=== PATIENT | male | born 1985 | race Caucasian/White ===

== ENCOUNTER → 2018-08-23 10:41 | Outpatient (CLI) | payer MEDICAID, SELFPAY ==
[2018-08-08 14:07] VITALS: BMI 34.2
--- NOTE | 2018-08-23 14:19 | PFTCOMP_ITS ---
COMPLETE PULMONARY FUNCTION TEST INTERPRETATION Brief HPI: Patient is a 33 year old male, currently under the care of Dr. Boyd, who presents to [facility] for complete pulmonary function tests secondary to diagnosis of cough. Respiratory therapist reports good effort and reproducible results. Interpretation: Forced expiration spirometry shows no large airways obstructive ventilatory defect with an FEV1 of 100% predicted. There is no significant bronchodilator response by strict ATS criteria. Spirograms are of good quality and plateau normally. The respiratory flow volume loop shows a normal pattern. Lung volumes by body plethysmography show a normal total lung capacity at 6.88 L, 91% predicted. All other lung volumes are within normal limits. Diffusion capacity by carbon monoxide is normal at 86% predicted. The airway resistance is normal. No previous pulmonary function tests were available for review. Impression: These pulmonary function tests are within normal limits, but the patient did use inhaled steroids on the day of testing.
--- OUTSIDE RECORDS SUMMARY | 2018-10-09 05:39 | XMS RPT_ITS ---
:1985 Author Organization [place] Support Name Relationship Address Phone EARNESTINE BOYD Unavailable [address] + [place] [address] RIP Unavailable [address] + [place] [address] CLAUDEEARNESTINE ALBARRAN Unavailable [address] + [place] [address] RIP Unavailable [address] + [place] [address] + [facility] [place] [address] DEB EARNESTINE Unavailable [address] +/ [place] [address] + [place] [address] DEB EARNESTINE Unavailable [address] +/ [place] [address] + [place] [address] DEB EARNESTINE Unavailable [address] +/ [place] [address] NOT GIVEN Unavailable SECURITY Unavailable RIMAVIS TANVIR Unavailable BROTHER + PARRIS BOYDINA Unavailable [address] Unavailable [place], [place] [phone] NOT GIVEN Unavailable SECURITY Unavailable RIMEL, TANVIR Unavailable BROTHER + DEB EARNESTINE Unavailable [address] Unavailable [place], [place] [phone] NOT GIVEN Unavailable Unavailable Unavailable RIMEL, TANVIR Unavailable BROTHER + PARRIS BOYDINA Unavailable [address] Unavailable [place], [place] [phone] Care Team Providers Name Role Phone DOMINIK, DR APARNA Treadwell Admitting Unavailable DOMINIK, DR APARNA Treadwell Attending Unavailable LUU, CATHERINE J Referring Unavailable DOMINIK, DR APARNA Treadwell Primary Care Unavailable LUU, CATHERINE J Consulting Unavailable PROVIDER, UNKNOWN Consulting Unavailable NEMUNAITIS, AYO Admitting Unavailable NEMUNAITIS, AYO Attending Unavailable NEMUNAITIS, AYO Primary Care Unavailable LUU, CATHERINE J Consulting Unavailable LUU, CATHERINE J Referring Unavailable PROVIDER, UNKNOWN Consulting Unavailable LUU, CATHERINE J Admitting Unavailable LUU, CATHERINE J Attending Unavailable LUU, CATHERINE J Primary Care Unavailable LUU, CATHERINE J Consulting Unavailable PROVIDER, UNKNOWN Consulting Unavailable Corby Delgado Attending Unavailable Alexey Boyd D.O. Referring Unavailable Lalita Botello Attending Unavailable Alexey Boyd D.O. Attending Unavailable JUAN A, CATHERINE Referring Unavailable Alexey Boyd D.O. Attending Unavailable JUAN A, CATHERINE Referring Unavailable Alexey Boyd D.O. Attending Unavailable Alexey Boyd D.O. Referring Unavailable LUU, CATHERINE Primary Care Unavailable PROBLEMS PROBLEMS DATE TYPE CONDITION / CODE ATTENDING STATUS SOURCE 08/31/2018 Unknown R05 - Cough / Corby Delgado Active [place] R05(ICD-10) [facility] Repository PROCEDURES PROCEDURES No Procedure Records FoundRESULTS RESULTS PULMONARY FUNCTION Observed: 08/24/2018 Status: F Source: [place] REPORT COMP 6:02 AM [facility] REPOSITORY [facility] Pulmonary Services/Neurology [address] [place] [address] MR#: [id number] Acct: [id number] Name: SHREYA BOYD Tyrone Rep #: [id number] : 1985 33 From: Corby Delgado MD Referring Dr: Alexey Boyd D.O. Status: REG CLI Ordering Dr: Date: Location: PSN Sex: M C COMPLETE PULMONARY FUNCTION TEST INTERPRETATION Brief HPI: Patient is a 33 year old male, currently under the care of Dr. Boyd, who presents to [facility] for complete pulmonary function tests secondary to diagnosis of cough. Respiratory therapist reports good effort and reproducible results. Interpretation: Forced expiration spirometry shows no large airways obstructive ventilatory defect with an FEV1 of 100% predicted. There is no significant bronchodilator response by strict ATS criteria. Spirograms are of good quality and plateau normally. The respiratory flow volume loop shows a normal pattern. Lung volumes by body plethysmography show a normal total lung capacity at 6.88 L, 91% predicted. All other lung volumes are within normal limits. Diffusion capacity by carbon monoxide is normal at 86% predicted. The airway resistance is normal. No previous pulmonary function tests were available for review. Impression: These pulmonary function tests are within normal limits, but the patient did use inhaled steroids on the day of testing. 08/24/18 0602 <Electronically signed by Corby Delgado MD> Date Corby Delgado MD CC: ESTRELLA LUU; Corby Delgado MD; Alexey Boyd D.O. Date Dictated: 08/23/18 1418 Date Transcribed: 08/23/181417 Treating Plant Supervisor: JACKI Signed PULMONARY VISIT REPORT Observed: 08/08/2018 Status: F Source: [place] 2:58 PM [facility] Pulmonary Medicine of [address] [place] [address] OFFICE VISIT Date of Service: 08/08/18 MR#: [id number] Acct: [id number] Name: SHREYA BOYD Rep #: [id number] : 1985 Provider: Alexey Boyd D.O. Age/Sex: 33/M Location: [facility] Status: Signed Assessment AND Plan 1. Chronic cough R05 Plan I do suspect that the patient's chronic cough complaints is likely the consequence of both postnasal drip precipitated by seasonal allergic rhinitis, along with possible cough variant asthma. Therefore, I am going to obtain baseline pulmonary function testing on the patient. In the interim, he will be provided with samples of Arnuity. The patient will also be provided with a prescription for an albuterol metered-dose inhaler to be utilized every 6 hours as needed. He has also been advised to avoid swallowing his smokeless tobacco in the future. The patient will have short interval follow-up with our nurse practitioner to assess his symptom response to therapy. Orders Orders: 2. Chewing tobacco nicotine dependence F17.220 Plan The patient was counseled regarding the deleterious effects of smokeless tobacco use. 3. Allergic rhinitis J30.9 Plan The patient will be started on Flonase to be utilized 2 sprays in each nostril daily. Plan Detail Other Medications New: albuterol sulfate HFA 90 mcg/actuation adm2 puffs Inhalation Q6H PRN 1 device 3RF shor inister with spacer tness of breath or cough fluticasone furoate 100 mcg/actuation (Arnuit1 inh Inhalation DAILY 1 device 3RF y Ellipta) Follow Up 6 Weeks ([facility]) HPI HPI Comments Details: The patient is a 33-year-old male that presents to the clinic today in referral for evaluation of a chronic cough. The patient is currently being followed by Catherine Luu of [facility]. 8 pages of outside medical records were personally reviewed at today's office visit. The patient reports the presence of a cough, which has been present since December 2017. He is not able to identify an initial inciting factor or precipitating event. He has been treated with azithromycin, antihistamines and H2 elif. Despite this, the patient's symptoms persist. The patient has never been diagnosed with asthma previously. His cough is essentially nonproductive in nature. Patient is currently employed working in the private security sector, but states that several months ago he was employed working at [employer] and was around chicken droppings all the time. He denies any significant chest tightness or wheezing. He additionally denies the presence of significant exertional dyspnea. The patient does currently utilize smokeless tobacco and admits that he both splits and swallows the product. When he does swallow the tobacco product, his cough worsens. He does not currently utilize any inhalers at his baseline. He does report secondhand smoke exposure. He has lived in [place] his entire life. He does not currently keep any pets in his home environment. His weight has been stable. Patient does report a history of seasonal allergic rhinitis and is currently dealing with postnasal drip symptoms. He denies fevers, chills or night sweats. Intake Vital Signs08/08/18 Height 6 ft 1 in Intake Visit Reasons: Cough Accompanied by: Self Allergies paroxetine HCl [From Paxil] Adverse Reaction (Verified 07/12/18 06:53) Other sertraline HCl [From Zoloft] Adverse Reaction (Verified 07/12/18 06:53) Other Medications omeprazole 20 mg capsule,delayed release 20 mg PO DAILY 07/06/18 [History Confirmed 08/08/18] albuterol sulfate HFA 90 mcg/actuation aerosol inhaler 2 puff INHALATION Q6H PRN #1 device 08/08/18 [Rx Confirmed 08/08/18] fluticasone 50 mcg/actuation nasal spray,suspension 2 spray INTRANASAL QDAY #1 device 08/08/18 [Rx Confirmed 08/08/18] fluticasone furoate 100 mcg/actuation blister powder for inhalation 1 inh INHALATION DAILY #1 device 08/08/18 [Rx Confirmed 08/08/18] PFSH Medical History Headache (Chronic) Chewing tobacco nicotine dependence (Chronic) Persistent cough (Chronic) Fatigue (Chronic) Vitamin D deficiency (Chronic) Seizures (Chronic) Family History Father Seizures Mother Seizures Social History Smoking Status: Never smoker second hand exposure: Yes Review of Systems Const CONSTITUTIONAL: Positive headache(s) (from coughing ); negative anorexia, body ache, chills, daytime sleepiness, fever(s), night sweats, oral thrush, stops breathing during sleep, weight loss, sleeping in chair, fatigue, weight loss, weight gain, frequent colds, seasonal allergies, other or orthopnea EETM Ear Nose Throat Mouth: Positive hearing normal and headache(s) (from coughing ); negative hard of hearing, hoarseness, dry mouth in morning, change in vision, itchy eyes, eye pain, swallowing Difficulty, ear pain, nose bleed, mouth pain, nasal congestion, nasal discharge, post nasal drip, sinus pain, sinus pressure, sore throat or other Cardio Cardiovascular: Negative chest pain, chest pain at rest, chest pain with activity, irregular heart rhythm, edema, shortness of breath when lying down, palpitations, murmur or other Resp Respiratory: Positive as per HPI, shortness of breath shortness of breath: Positive with activity, cough cough: Positive productive (unaware of color) and chest tightness; negative pain with cough, wheezing, chest congestion, pain on inspiration, inhalers, increase use of rescue inhalers, snoring, apnea or other Gastro Gastrointestional: Negative bloody stools, change in appetite, difficulty swallowing, reflux, hematemesis, melena stool, loose stool, constipation or other Genitourinary: Negative blood in urine, nocturia, pain with urination or other Musc Musculoskeletal: Negative body pain, back pain, neck pain or other Skin/Breast Skin/Breast: Negative dry skin, itching, rash, unusual bruising, breast lump or other Neuro Neurological: Negative restless legs, confusion, weakness or other Psych Psychocological: Negative abnormal sleep pattern, anxiety, thoughts of hurting self/others, hopelessness or other Lymph Lymphatic: Negative easy bleeding, easy bruising, swollen lymph nodes or other Exam Const Constitutional: Positive conversant, cooperative, in no acute respiratory distress, well developed, well nourished and good hygiene Head Head: Positive normocephalic and atraumatic; negative cyanosis of lips/distal nose Eyes Eye: Positive clear conjunctiva; negative nystagmus or scleral abnormality Ears Ear: Positive hearing normal and external ears normal; negative hard of hearing Nose Nose: Positive external nose normal; negative epistaxis Mouth Mouth: Positive oral mucosae normal and posterior oropharynx is adequate; negative no lesions or post nasal drip Mallampati Score: II: Mallampati Score Neck Neck: Positive normal visual inspection and trachea midline; negative lymphadenopathy Chest Wall Chest: Positive symmetric chest movement Normal AP diameter. Resp lung sounds: Positive clear to auscultation and good air exchange; negative wheezes, rhonchi or rales Cardio Cardiac: Positive regular rate, regular rhythm, S1 normal and S2 normal; negative rub, gallop or murmur GI GI: Positive normal bowel sounds Soft without distention Genitourinary: Positive deferred [facility] Musculoskeletal: Positive steady gait Skin Pulmonary Skin Exam: Positive intact; negative lesion, ulcers, dermal atrophy or rash Pulses Pulse: Yes Pedal pulses present: Extremities Extremities: No clubbing, No cyanosis, No edema Neuro Neurologic: Yes conversant, Yes no focal neuro deficits, Yes cooperative Lymph Lymphatic: No lymphadenopathy Psych Appearance: Positive grossly normal Mental Status: Positive mental status grossly normal Mood: Positive congruent mood Affect: Positive normal affect Coding Level of Care Code Off vis,new,level 4 Diagnoses Chronic cough R05 Chewing tobacco nicotine dependence F17.220 Allergic rhinitis J30.9 08/08/18 3423 <Electronically signed by Alexey Boyd DO> Date Alexey Adams Signature: Date (if applicable) CC: ESTRELLA LUU CHEST 2 VIEWS Observed: 04/25/2018 Status: F Source: [place] 5:[address] [address] Patient: SHREYA BOYD Phone#: : 1985 Age: 32 Gender: M Pt. Type: Out Account: [id number] Location: [facility] Ordering: CATHERINE LUU Exam Date: 04/25/2018/16:59 Family Phys: Charge Code: 419261 Physician: Davidson Order #: [id number] DLP Dose#: PROCEDURE: X-RAY CHEST 2 VIEWS COMPARISON: [facility], XR, CHEST 2 VIEWS, 12/10/2017, 0:37. INDICATIONS: Persistent Cough FINDINGS: LUNGS: Normal. No significant pulmonary parenchymal abnormalities. VASCULATURE: Normal. Unremarkable pulmonary vasculature. CARDIAC: Normal. No cardiac silhouette abnormality or cardiomegaly. MEDIASTINUM: Normal. No visible mass or adenopathy. PLEURA: Normal. No effusion or pleural thickening. BONES: Normal. No fracture or visible bony lesion. OTHER: Negative. CONCLUSION: No acute disease. No significant change has occurred. Dictated by: Nicolette Armando MD on 04/25/2018 at 17:15 Approved by: Nicolette Armando MD on 04/25/2018 at 17:15 CHEST 2 VIEWS Observed: 12/10/2017 Status: F Source: [place] 12:[address] [address] Patient: SHREYA BOYD Phone#: : 1985 Age: 32 Gender: M Pt. Type: ER Account: [id number] Location: 052 Ordering: AYO AVILA Exam Date: 12/10/2017/0:37 Family Phys: CATHERINE LUU Charge Code: [id number] Physician: Davidson Order #: [id number] DLP Dose#: PROCEDURE: X-RAY CHEST 2 VIEWS COMPARISON: [facility], XR, CHEST PA/LAT, 08/27/2013, 21:24. INDICATIONS: Cough FINDINGS: LUNGS: Normal. No significant pulmonary parenchymal abnormalities. VASCULATURE: Normal. Unremarkable pulmonary vasculature. CARDIAC: Normal. No cardiac silhouette abnormality or cardiomegaly. MEDIASTINUM: Normal. No visible mass or adenopathy. PLEURA: Normal. No effusion or pleural thickening. BONES: Normal. No fracture or visible bony lesion. OTHER: Negative. CONCLUSION: No acute disease. No significant change has occurred. Dictated by: Jonna Torres MD on 12/10/2017 at 15:48 Approved by: Jonna Torres MD on 12/10/2017 at 15:48 EMERGENCY REPORT Observed: 10/26/2017 Status: F Source: [facility] 2:12 AM [facility] EMERGENCY ROOM REPORT NAME NUMBER SEX AGE ADMIT DISC TYPE MED.RECORD# SHREYA BOYD SR [id number] M 32 07/17/2017 07/17/2017 RaviRSnehal [id number] ROOM:ER DATE OF :1985 PHYSICIAN NO.:[id number] PHYSICIAN NAME:ESTRELLA WILLSON PHYSICIAN:Tamara Flores M.D. CHIEF COMPLAINT: Cyst to left side of scrotum. HISTORY OF PRESENT ILLNESS: Patient is a 32-year-old male who has a history of recurrent cysts. Patient states that about every year or 2 years he ends up with a cyst on some part of his body. This one started 2 days ago. He noticed a small cyst on his scrotum which has gotten a bit more painful over the last couple of days. Historically patient has allowed a previous cyst to enlarge and get bigger, requiring incision and drainage in the ED. Patient was about to take some nail clippers to pop this one tonight, but acquired patient to come to the ED to get evaluated. Patient denies fevers, chills, nausea, vomiting, diarrhea. Patient also denies any drainage from this cyst. PAST MEDICAL HISTORY: Denies. PAST SURGICAL HISTORY: History of ankle surgery. ALLERGIES: (1) Paxil. (2) Zoloft. (3) Bleach. For Paxil and Zoloft reaction is anaphylaxis and severity is moderate. SOCIAL HISTORY: The patient is a current every day user of chewing tobacco. Patient also occasionally uses alcohol. Denies illicit drug use. Denies prescription drug use. Patient lives at home with his family. Patient denies concerns for domestic violence or thoughts of self-harm. His immunizations are up to date to include tetanus shot. REVIEW OF SYSTEMS: A full complete review of systems was done on ED report, please see the paper chart for additional details. PHYSICAL EXAMINATION: Vital signs: Temperature 99, pulse 102, respiratory rate 20, BP 147/88, oxygen saturation 97%. General: Patient is awake, alert, oriented x3. He is seated in physical exam room 2. Patient is in no acute distress. HEENT: Atraumatic, normocephalic. Extraocular muscles intact. Mucous membranes moist. Neck: Supple. Range of motion normal. Lungs: Clear to auscultation bilaterally. Cardiovascular: Regular rate and rhythm. Neurologic: Cranial nerves 2 through 12 grossly intact. Strength is grossly 5/5 in all extremities and sensation is normal. Skin: Warm, moist, and normal with exception of last his scrotal area in which there is a 3 mm cyst superficially containing white material. There is no surrounding induration, there is no surrounding erythema, area is mildly tender. There is no evidence of drainage. There is no evidence of trauma to this area. DIAGNOSTIC DATA: Studies and laboratories: None. MEDICAL DECISION MAKING: Patient is a 32-year-old male with a left-sided scrotal cyst. I scrubbed the area, as well as 3 cm in each direction from the cyst with an alcohol pad. I used a 21-gauge needle to kristian the cyst and a trace amount about a quarter of a mL of pus was expressed from the cyst, after which a small amount of blood was obtained. A circular Band-Aid that is about 1.5 cm in diameter with a square kind of gauze centerpiece was applied to the area. Given the lack of induration or erythema, or overt sign of infection and the lack of other lesions, I did not feel that antibiotics were necessary at this time. Patient was in agreement with this plan. I also discussed return to ER for cautions to include increasing pain, erythema, increasing discharge from the incision site. Patient also expressed understanding of this and promised to return to the ED if he developed any new concerns. PLAN/DISPOSITION: Home. Condition good. D: Tamara Flores M.D. TD: 07/18/2017 09:30:45 EMERGENCY ROOM REPORT SHREYA BOYD SR 1 [facility] EMERGENCY ROOM REPORT NAME NUMBER SEX AGE ADMIT DISC TYPE MED.RECORD# SHREYA BOYD Tyrone [id number] M 32 07/17/2017 07/17/2017 E.RSnehal [id number] ROOM:ER DATE OF :1985 PHYSICIAN NO.:[id number] PHYSICIAN NAME:ESTRELLA WILLSON PHYSICIAN:Tamara Flores M.D. JOB #: [id number] DR[facility] TAMARA FLORES EMERGENCY DEPARTMENT 10/26/17 02:12 Transcribed by: DOMINIC 07/18/2017 09:30:45 Copy for: JUAN MCDONALD MD Copy for: DOMINIK Treadwell III Copy for: JUAN A LAUREANO via fax EMERGENCY ROOM REPORT DEBSHREYA SR 2 ALLERGIES ALLERGIES DATE TYPE / CODE NAME / CODE REACTION SEVERITY SOURCE Drug sertraline Other Unknown Billy 8 Allergy/575821598( HCl/V636443854( Community SNOM[facility]) RXNORM) Hospital Repository Drug paroxetine Other Unknown [place] 8 Allergy/799928930( HCl/U766818255( Community SNOM[facility]) RXNORM) Hospital Repository Drug PAXIL/74267712( ANAPHYLAXIS Moderate Danilo Pomerene Allergy/859414919( RXNORM) ([facility]) Modifier) Hospital (Qualifier Repository Value) Drug ZOLOFT/28576958 ANAPHYLAXIS Moderate Danilo Pomerene Allergy/367281138( (RXNORM) (Severity [facility] SNOMED CT) Modifier) Hospital (Qualifier Repository Value) Environmental bleach <OTHER> Moderate Danilo Pomerene Allergy/812005077( ([facility]) Modifier) Hospital (Qualifier Repository Value) ENCOUNTERS ENCOUNTERS ADMIT/DISCHARGE ACCOUNT ADMITTING ENCOUNTER LOCATION SOURCE NUMBER CLASS 08/23/2018 [id number] Ambulatory BMSBuilding:W [place] 6 [facility] Repository 08/23/2018 [id number] Ambulatory Billy Billy 6 [facility] ing:PSN Repository 08/08/2018/ [id number] Ambulatory BMSBuilding:B Billy 8 0 [place] [facility] Repository 07/12/2018 [id number] Ambulatory BMSBuilding:B Billy 4 [place] [facility] Repository 07/06/2018 [id number] Ambulatory BMS [place] 6 [facility] Repository 04/25/2018/ [id number] LUU, Ambulatory Danilo Pomnella 8 [facility] Repository 12/10/2017/ [id number] NEMUNAITIS, Emergency [address] [place] [address] 8 AYO cabrera: ERBed: [facility] Repository 07/17/2017/ [id number] DR DOMINIK Emergency [address] [place] [address] 7 APARNA cabrera: ERBed: [facility] Repository PAYERS PAYERS ENCOUNTER GUARANTOR PAYER SUBSCRIBER SOURCE 08/23/2018 SHREYA Hansen Primary Insurance:[facility] SHREYA BOYD236 [facility], Number: [id number] [address]Hzx: [id number] Repository Date:7890-02-19DK [address] () [address] [place] [address] 96[address]SQ: 08/23/2018 Secondary NOT GIVENUNK [place] Insurance:SELF PAY [facility] Number: Effective Repository Date:2018-08-23 08/23/2018 SHREYA Hansen Primary Insurance:[facility] SHREYA Cervantes [id number] [facility]: [facility], Number: [id number] [address]Wym: [id number] Repository Date:0481-19-46VY BOX () [address] [place] [address] 98[address]WR: 08/23/2018 Secondary NOT GIVENUNK Billy Insurance:SELF PAY [facility] Number: Effective Repository Date:2018-08-08 08/08/2018 SHREYA L Primary Insurance:[facility] SHREYA Hansen Billy [id number] [facility], Number: [id number] [facility] [place] [address]Dxl: [id number] Repository Date:8579-71-96GK BOX () [address] [place] [address] 985[address]IC: 08/08/2018 Secondary NOT GIVENUNK Billy Insurance:SELF PAY [facility] Number: Effective Repository Date:2018-08-01 07/12/2018 SHREYA L Primary Insurance:[facility] SHREYA Cervantes [id number] TWTerre [facility] HospitalOB[facility] [address] [address]IG Number: [id number] [place], [place] [id number] Repository [address]Zbt: [phone]) Date:1528-87-57JY [phone] () [address] [place] [address] 15197QL: 07/12/2018 Secondary NOT GIVENUNK [place] Insurance:SELF PAY [facility] Number: Effective Repository Date:2018-06-07 07/06/2018 Shreya L Primary Insurance:[facility] Shreya Hansen Billy [id number] TwMedical [facility] [address] [address] Number: [id number], [place] [id number] Repository [phone]: [phone]) Date:6800-87-15WG [phone] () [address] [place] [address] 176[address]TX: 07/06/2018 Secondary NOT GIVENUNK [place] Insurance:SELF PAY [facility] Number: Effective Repository Date:2018-07-06 04/25/2018 SHREYA Primary SHREYA Finley RIMELDOB: Insurance:[facility] [id number] [facility] [id number] [place] [address] [facility] [address]BIG Repository ALEXISABLIIO, Number: José [place] [address]Zff: [id number] Date:Plan Name:X4 () 12/10/2017 SHREYA Primary SHREYA Finley [facility] [id number] [facility] [id number] [facility] [address] [address]BIG PLAN OUTPATPolicy [address] [facility] [address] [address]BIG Repository José Luis FARAH Number: José Luis FARAH [id number]: [id number] Date:Plan Name:X4 () 07/17/2017 [facility] Shreya Finley [facility] Insurance:[facility] RimelDOB: [facility] [id number] [facility] [id number] [facility] [address] [address]BIG Number: [address] [facility] [facility] [facility] [address] [id number] [facility] [place] [id number] [id number]: Date:Plan Name:[id number] ()
== END ==
PROVIDERS: Family Provider Physician Assistant; PCP Physician Assistant; Referring Provider Internal Medicine Critical Care Medicine; Visit Provider Internal Medicine Critical Care Medicine
DX: R05 Cough (principal)
CPT/HCPCS: 94060; 94726; 94729

== ENCOUNTER → 2019-02-07 08:29 | Outpatient (CLI) | payer MEDICAID, SELFPAY ==
[2019-02-07 07:44] VITALS: BMI 36.1
--- NOTE | 2019-02-07 08:44 | RAD_ITS ---
STUDY: X-RAY CHEST REASON FOR EXAM: Male, 33 years old. Vomiting and coughing for a year and half. TECHNIQUE: PA and lateral views of the chest. COMPARISON: None. FINDINGS: The lungs are clear and expanded. There is no demonstrated pleural abnormality. Normal size heart. Normal mediastinum and beau. Normal visualized pulmonary arteries. Normal visualized aortic arch and descending thoracic aorta. Normal visualized thoracic spine. Normal visualized ribs, clavicles, and shoulders. There is no demonstrated abnormality of the visualized soft tissue structures of the upper abdomen. RAD/Chest PA and Lateral IMPRESSION: No acute cardiopulmonary disease. Electronically Signed: Clement Yang DO at 16:48 EDT Tel [phone], Service support ,
[2019-02-07 08:47] LABS: Absolute Neutrophil Count 3.4 X10^3/uL (2.0-7.7); Basophil# 0.04 X10^3/uL; Basophil% 0.6 % (0-1); Eosinophil# 0.18 X10^3/uL; Eosinophils% 2.7 % (0-5); Hematocrit 47.2 % (40-54); Lymphocyte % 34.8 % (19-41); Mean Corp Hgb Conc 33.9 g/gl (32-36); Mean Corpuscular Hgb 26.7 pg (27.0-32.0); Mean Corpuscular Volume 78.8 fL (80-94); Mean Platelet Vol. 10.8 fl (6.2-12.0); Monocyte# 0.72 X10^3/uL; Monocyte% 10.9 % (0-10); Neutrophil # 3.35 X10^3/uL (2.7-7.7); Neutrophil % 50.8 % (47-70); Platelet Count 214 K/mm3 (150-450); RBC Distribution Width CV 13.5 % (11.6-14.6); RBC Distribution Width SD 38.6 fl (35.1-43.9); Red Blood Count 5.99 M/mm3 (4.6-6.2); White Blood Count 6.6 K/mm3 (4.4-11.0)
[2019-02-07 08:48] LABS: POSITIVE COUNT NO; POSITIVE DIFFERENTIAL NO; POSITIVE MORPHOLOGY NO
[2019-02-14 03:06] LABS: Alternaria tenuis <0.10 kU/L (Class 0); Ash, White <0.10 kU/L (Class 0); Aspergillus fumigatus <0.10 kU/L (Class 0); Aspirgillus flavus Negative (Neg:<1:1); Aspirgillus fumigatus Negative (Neg:<1:1); Aspirgillus niger Negative (Neg:<1:1); Bermuda Grass 1.34 kU/L (Class II); Birch <0.10 kU/L (Class 0); Black Walnut <0.10 kU/L (Class 0); Cat Hair / Dander,Stand <0.10 kU/L (Class 0); Cedar, Mountain <0.10 kU/L (Class 0); Cladosporium herbarum <0.10 kU/L (Class 0); Cockroach, American <0.10 kU/L (Class 0); Cottonwood <0.10 kU/L (Class 0); D farinae Mite 1.45 kU/L (Class III); D pteronyssinus 1.51 kU/L (Class III); Dog Epithelia <0.10 kU/L (Class 0); Elm, American White <0.10 kU/L (Class 0); Immunoglobulin E 184 IU/mL (6-495); Maple/Box Elder <0.10 kU/L (Class 0); Mulberry, White <0.10 kU/L (Class 0); Oak, White <0.10 kU/L (Class 0); Pecan <0.10 kU/L (Class 0); Penicillium Notatum <0.10 kU/L (Class 0); Pigweed, Rough <0.10 kU/L (Class 0); Ragweed, Short/Common 0.31 kU/L (Class 0/I); Russian Thistle <0.10 kU/L (Class 0); Sycamore, American <0.10 kU/L (Class 0)
[2019-02-14 08:32] LABS: Immunoglobulin E 175 IU/mL (6-495); Mouse Urine <0.10 kU/L (Class 0)
== END ==
PROVIDERS: Family Provider Physician Assistant; PCP Physician Assistant; Referring Provider Internal Medicine Critical Care Medicine; Visit Provider Internal Medicine Critical Care Medicine
DX: R05 Cough (principal)
CPT/HCPCS: 36415; 71046; 82785; 85025; 86003; 86606

== ENCOUNTER → 2019-02-22 15:49 | Outpatient (CLI) | payer MEDICAID, SELFPAY ==
[2019-02-07 07:44] VITALS: BMI 36.1
== END ==
PROVIDERS: Family Provider Physician Assistant; PCP Physician Assistant; Referring Provider Otolaryngology Otolaryngology/Facial Plastic Surgery; Visit Provider Otolaryngology Otolaryngology/Facial Plastic Surgery
DX: J32.9 Chronic sinusitis, unspecified (principal); R05 Cough
CPT/HCPCS: 87070; 87205

== ENCOUNTER → 2019-03-04 08:42 | Outpatient (CLI) | payer MEDICAID, SELFPAY ==
[2019-02-07 07:44] VITALS: BMI 36.1
--- NOTE | 2019-03-04 08:45 | RAD_ITS ---
Patient swallowed the barium without difficulty. There is no evidence of obstruction, hiatal hernia or gastroesophageal reflux. The stomach and duodenal bulb are unremarkable. Impression : Negative barium swallow Electronically Signed: Maribel Rausch, at 16:10 EDT Tel , Service support , RAD/Esophagus Only
== END ==
PROVIDERS: Family Provider Physician Assistant; PCP Physician Assistant; Referring Provider Otolaryngology Otolaryngology/Facial Plastic Surgery; Visit Provider Otolaryngology Otolaryngology/Facial Plastic Surgery
DX: R05 Cough (principal); K21.9 Gastro-esophageal reflux disease without esophagitis
CPT/HCPCS: 74220

== ENCOUNTER → 2020-02-19 15:35 | Outpatient (CLI) | payer MEDICAID, SELFPAY ==
[2020-02-19 14:55] VITALS: BMI 35.5
[2020-02-19 17:16] LABS: Absolute Lymphocyte Count 2.43 X10^3/uL (0.83-4.51); Absolute Neutrophil Count 4.4 X10^3/uL (2.0-7.7); Basophil# 0.07 X10^3/uL; Basophil% 0.9 % (0-1); Eosinophil# 0.18 X10^3/uL; Eosinophils% 2.2 % (0-5); Hemoglobin 15.2 g/dL (13.0-16.5); Lymphocyte # 2.43 X10^3/ul (4.0); Lymphocyte % 29.8 % (19-41); Mean Corp Hgb Conc 32.3 g/dL (32-36); Mean Corpuscular Volume 83.5 fL (80-94); Mean Platelet Vol. 10.9 fl (6.2-12.0); Monocyte# 1.07 X10^3/uL; Monocyte% 13.1 % (0-10); NRBC Flagged by Analyzer 0 % (0-5); Neutrophil # 4.39 X10^3/uL (2.7-7.7); Neutrophil % 53.8 % (47-70); Platelet Count 242 K/mm3 (150-450); RBC Distribution Width CV 12.9 % (11.6-14.6); Red Blood Count 5.63 M/mm3 (4.6-6.2); White Blood Count 8.2 K/mm3 (4.4-11.0)
[2020-02-19 17:40] LABS: ALB/GLOB Ratio 1.1 RATIO (0.9-2.4); AST(SGOT) 17 U/L (15-37); Alanine Aminotransfer ALT/SGPT 35 U/L (16-61); Albumin, Serum 4.1 g/dL (3.2-5.0); Alkaline Phosphatase 79 U/L (45-117); Anion Gap 9 (5-15); BUN 11 mg/dL (7-18); BUN/Creat Ratio 9.2 RATIO (10-20); Calcium,Total 9.3 mg/dL (8.5-10.1); Chloride 105 mmol/L (98-107); Creatinine, Serum 1.19 mg/dL (0.70-1.30); EST Glomerular Filtration Rate 75 mL/min (>60); Est Glom Filt Rate - Afr Amer 91 mL/min (>60); Globulin 3.7 g/dL (2.2-4.2); Glucose 93 mg/dL (74-106); Potassium 3.8 mmol/L (3.5-5.1); Protein, Total 7.8 g/dL (6.4-8.2); Sodium Level 139 mmol/L (136-145)
== END ==
PROVIDERS: PCP Internal Medicine; Referring Provider Internal Medicine; Visit Provider Internal Medicine
DX: K21.9 Gastro-esophageal reflux disease without esophagitis (principal)
CPT/HCPCS: 36415; 80053; 85025

== ENCOUNTER → 2020-02-21 13:04 | Outpatient (CLI) | payer MEDICAID, SELFPAY ==
[2020-02-19 14:55] VITALS: BMI 35.5
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
== END ==
PROVIDERS: PCP Internal Medicine; Referring Provider Internal Medicine; Visit Provider Internal Medicine
DX: M79.641 Pain in right hand (principal)
CPT/HCPCS: 73130

== ENCOUNTER → 2020-06-15 14:53 | Outpatient (CLI) | payer MEDICAID, SELFPAY ==
[2020-05-06 08:13] VITALS: BMI 35.5
[2020-06-15 16:12] LABS: Absolute Lymphocyte Count 1.01 X10^3/uL (0.83-4.51); Absolute Neutrophil Count 9.5 X10^3/uL (2.0-7.7); Basophil# 0.01 X10^3/uL; Basophil% 0.1 % (0-1); Hemoglobin 14.9 g/dL (13.0-16.5); Lymphocyte # 1.01 X10^3/ul (4.0); Lymphocyte % 9.3 % (19-41); Mean Corp Hgb Conc 31.7 g/dL (32-36); Mean Corpuscular Hgb 26.2 pg (27.0-32.0); Mean Corpuscular Volume 82.6 fL (80-94); Mean Platelet Vol. 10.6 fl (6.2-12.0); Monocyte# 0.29 X10^3/uL; Monocyte% 2.7 % (0-10); NRBC Flagged by Analyzer 0 % (0-5); Neutrophil # 9.47 X10^3/uL (2.7-7.7); Neutrophil % 87.4 % (47-70); Platelet Count 266 K/mm3 (150-450); RBC Distribution Width SD 39.5 fl (35.1-43.9); Red Blood Count 5.69 M/mm3 (4.6-6.2); White Blood Count 10.8 K/mm3 (4.4-11.0)
== END ==
PROVIDERS: PCP Internal Medicine; Referring Provider Nurse Practitioner Acute Care; Visit Provider Nurse Practitioner Acute Care
DX: J45.909 Unspecified asthma, uncomplicated (principal)
CPT/HCPCS: 36415; 85025

== ENCOUNTER → 2021-04-08 14:03 | Outpatient (CLI) | payer MEDICAID, SELFPAY ==
[2021-04-08 13:34] VITALS: BMI 35.4
[2021-04-08 15:17] LABS: Absolute Lymphocyte Count 4.25 X10^3/uL (0.83-4.51); Absolute Neutrophil Count 5.1 X10^3/uL (2.0-7.7); Basophil# 0.08 X10^3/uL; Basophil% 0.7 % (0-1); Eosinophil# 0.12 X10^3/uL; Eosinophils% 1.1 % (0-5); Hematocrit 47.5 % (40-54); Hemoglobin 15.2 g/dL (13.0-16.5); Lymphocyte # 4.25 X10^3/ul (0.83-4.51); Lymphocyte % 39.2 % (19-41); Mean Corpuscular Hgb 26.1 pg (27.0-32.0); Mean Corpuscular Volume 81.5 fL (80-94); Mean Platelet Vol. 10.4 fl (6.2-12.0); Monocyte# 1.18 X10^3/uL; Monocyte% 10.9 % (0-10); NRBC Flagged by Analyzer 0 % (0-5); Neutrophil # 5.12 X10^3/uL (2.7-7.7); Neutrophil % 47.3 % (47-70); Platelet Count 230 K/mm3 (150-450); RBC Distribution Width CV 14.1 % (11.6-14.6); RBC Distribution Width SD 41.5 fl (35.1-43.9); Red Blood Count 5.83 M/mm3 (4.6-6.2); White Blood Count 10.8 K/mm3 (4.4-11.0)
[2021-04-08 15:48] LABS: ALB/GLOB Ratio 1.2 RATIO (0.9-2.4); AST(SGOT) 11 U/L (15-37); Alanine Aminotransfer ALT/SGPT 27 U/L (16-61); Albumin, Serum 3.6 g/dL (3.2-5.0); Alkaline Phosphatase 53 U/L (45-117); Anion Gap 5 (5-15); BUN 11 mg/dL (7-18); BUN/Creat Ratio 8.8 RATIO (10-20); Calcium,Total 8.7 mg/dL (8.5-10.1); Chloride 103 mmol/L (98-107); Cholesterol 249 mg/dL (200); Creatinine, Serum 1.25 mg/dL (0.70-1.30); EST Glomerular Filtration Rate 70 mL/min (>60); Est Glom Filt Rate - Afr Amer 85 mL/min (>60); Globulin 3.1 g/dL (2.2-4.2); Glucose 104 mg/dL (74-106); High Density Lipoprotein 58 mg/dL; Potassium 3.3 mmol/L (3.5-5.1); Protein, Total 6.7 g/dL (6.4-8.2); Sodium Level 138 mmol/L (136-145); Triglycerides 224 mg/dL; Very Low Density Lipoprotein 45 mg/dL (5-40)
== END ==
PROVIDERS: PCP Internal Medicine; Referring Provider Internal Medicine; Visit Provider Internal Medicine
DX: G43.909 Migraine, unspecified, not intractable, without status migrainosus (principal); J45.50 Severe persistent asthma, uncomplicated; E66.9 Obesity, unspecified
CPT/HCPCS: 36415; 80053; 80061; 85025

== ENCOUNTER → 2022-02-04 | Outpatient (CLI) | payer MEDICARE, MEDICAID, SELFPAY ==
[2022-02-04 10:39] VITALS: BP 112/78; PULSE 93; RESP 12; TEMP 36.3; O2SAT 97
[2022-02-04] MEDS: Benralizumab 30 MG/ML Syringe SC (10:57)
== END | disposition home or self-care (01) ==
LOC: MEDOUTP 10:20
PROVIDERS: PCP Internal Medicine; Referring Provider Nurse Practitioner Acute Care; Visit Provider Nurse Practitioner Acute Care
DX: J45.50 Severe persistent asthma, uncomplicated (principal)
CPT/HCPCS: 96372; J0517

== ENCOUNTER → 2022-03-02 | Outpatient (CLI) | payer MEDICARE, MEDICAID, SELFPAY ==
--- NOTE | 2022-03-02 08:38 | RAD_ITS ---
STUDY: X-RAY - LEFT ANKLE REASON FOR EXAM: Male, 36 years old. Lateral ankle pain. TECHNIQUE: 3 view(s) of the ankle. COMPARISON: None. FINDINGS: Normal visualized distal tibia and fibula. Separate ossification center for the medial malleolus. Normal tibiotalar articulation and ankle mortise. Os trigonum, a normal variant. Small superior and inferior calcaneal spurs. The visualized subtalar, talonavicular, calcaneocuboid and tarsal articulations are normal. Generalized soft tissue swelling. RAD/Ankle min 3 Views IMPRESSION: Calcaneal spurs with soft tissue swelling. No acute osseous abnormality. Electronically Signed: Noe Jeffries MD at 13:21 EDT ,
--- NOTE | 2022-03-02 08:38 | RAD_ITS ---
STUDY: X-RAY - LUMBAR SPINE REASON FOR EXAM: Male, 36 years old. ] Pain. TECHNIQUE: 3 view(s) of the lumbar spine were obtained. COMPARISON: None FINDINGS: Normal lumbar lordosis. There is no substantial scoliosis. There is a normal alignment of the vertebrae. Normal vertebral bodies and endplates. Normal disc space heights. The soft tissue structures are unremarkable. RAD/Lumbar Spine 2 or 3 Views IMPRESSION: Normal x-ray examination of the lumbar spine. Electronically Signed: Noe Jeffries MD at 13:11 EDT ,
== END | disposition home or self-care (01) ==
LOC: RAD 08:37
PROVIDERS: PCP Internal Medicine; Referring Provider Physician Assistant; Visit Provider Physician Assistant
DX: M25.572 Pain in left ankle and joints of left foot (principal); M54.50 Low back pain, unspecified
CPT/HCPCS: 72100; 73610

== ENCOUNTER → 2022-04-05 | Outpatient (CLI) | payer MEDICARE, MEDICAID, SELFPAY ==
[2022-04-05 07:50] VITALS: BP 128/84; PULSE 78; RESP 16; TEMP 36.2; O2SAT 98
[2022-04-05] MEDS: Benralizumab 30 MG/ML Syringe SC (08:05)
== END | disposition home or self-care (01) ==
LOC: MEDOUTP 07:54
PROVIDERS: PCP Internal Medicine; Referring Provider Nurse Practitioner Acute Care; Visit Provider Nurse Practitioner Acute Care
DX: J45.50 Severe persistent asthma, uncomplicated (principal)
CPT/HCPCS: 96372; J0517

== ENCOUNTER → 2022-06-13 | Outpatient (CLI) | payer MEDICARE, MEDICAID, SELFPAY ==
[2022-06-13 13:30] VITALS: BP 127/79; PULSE 77; RESP 16; TEMP 36.6; O2SAT 98; BMI 35.6
[2022-06-13] MEDS: Benralizumab 30 MG/ML Syringe SC ×2 (13:40→13:41)
== END | disposition home or self-care (01) ==
LOC: MEDOUTP 13:24
PROVIDERS: PCP Internal Medicine; Referring Provider Nurse Practitioner Acute Care; Visit Provider Nurse Practitioner Acute Care
DX: J45.50 Severe persistent asthma, uncomplicated (principal)
CPT/HCPCS: 96372; J0517

== ENCOUNTER → 2022-08-12 | Outpatient (CLI) | payer MEDICARE, MEDICAID, SELFPAY ==
[2022-08-12 12:08] VITALS: BP 112/87; PULSE 78; RESP 16; TEMP 37.5; O2SAT 97; BMI 33.9
[2022-08-12] MEDS: Benralizumab 30 MG/ML Syringe SC (12:09)
== END | disposition home or self-care (01) ==
LOC: MEDOUTP 11:56
PROVIDERS: PCP Internal Medicine; Referring Provider Nurse Practitioner Acute Care; Visit Provider Nurse Practitioner Acute Care
DX: J45.50 Severe persistent asthma, uncomplicated (principal)
CPT/HCPCS: 96372; J0517

== ENCOUNTER → 2022-10-10 | Outpatient (CLI) | payer MEDICARE, MEDICAID, SELFPAY ==
[2022-10-10 12:59] VITALS: BP 144/97; PULSE 93; RESP 16; O2SAT 97; BMI 33.9
[2022-10-10] MEDS: Benralizumab 30 MG/ML Syringe SC (13:02)
== END | disposition home or self-care (01) ==
LOC: MEDOUTP 12:50
PROVIDERS: PCP Internal Medicine; Referring Provider Nurse Practitioner Acute Care; Visit Provider Nurse Practitioner Acute Care
DX: J45.50 Severe persistent asthma, uncomplicated (principal)
CPT/HCPCS: 96372; J0517

== ENCOUNTER → 2022-12-05 | Outpatient (CLI) | payer MEDICARE, MEDICAID, SELFPAY ==
[2022-12-05 13:59] VITALS: BP 126/95; PULSE 90; RESP 16; TEMP 36.6; O2SAT 98; BMI 33.6
[2022-12-05] MEDS: Benralizumab 30 MG/ML Syringe SC (14:07)
== END | disposition home or self-care (01) ==
PROVIDERS: PCP Internal Medicine; Referring Provider Nurse Practitioner Acute Care; Visit Provider Nurse Practitioner Acute Care
DX: J45.50 Severe persistent asthma, uncomplicated (principal)
CPT/HCPCS: 96372; J0517

== ENCOUNTER 2023-03-10 11:21 | Outpatient (CLI) | payer MEDICARE, MEDICAID, SELFPAY ==
[2023-03-10 11:29] VITALS: BP 122/80; PULSE 76; RESP 16; TEMP 36.3; O2SAT 97; BMI 34.3
[2023-03-10] MEDS: Benralizumab 30 MG/ML Syringe SC (11:34)
== END 2023-03-10 11:22 | disposition home or self-care (01) ==
PROVIDERS: PCP Internal Medicine; Referring Provider Nurse Practitioner Acute Care; Visit Provider Nurse Practitioner Acute Care
DX: J45.50 Severe persistent asthma, uncomplicated (principal)
CPT/HCPCS: 96372; J0517

== ENCOUNTER 2023-05-08 12:51 | Outpatient (CLI) | payer MEDICARE, MEDICAID, SELFPAY ==
[2023-05-08 12:55] VITALS: BP 129/80; PULSE 75; RESP 16; TEMP 36.6; O2SAT 97
[2023-05-08] MEDS: Benralizumab 30 MG/ML Syringe SC (13:05)
== END 2023-05-08 12:52 | disposition home or self-care (01) ==
LOC: MEDOUTP 12:51
PROVIDERS: PCP Internal Medicine; Referring Provider Nurse Practitioner Acute Care; Visit Provider Nurse Practitioner Acute Care
DX: J45.50 Severe persistent asthma, uncomplicated (principal)
CPT/HCPCS: 96372; J0517

== ENCOUNTER 2023-06-29 15:24 | Outpatient (CLI) | payer MEDICARE, MEDICAID, SELFPAY ==
[2023-06-29] MEDS: Benralizumab 30 MG/ML Syringe SC (15:32)
[2023-06-29 15:35] VITALS: BP 145/86; PULSE 86; RESP 18; TEMP 36.2; O2SAT 96; BMI 34.9
== END 2023-06-29 15:25 | disposition home or self-care (01) ==
LOC: MEDOUTP 15:25
PROVIDERS: PCP Internal Medicine; Referring Provider Nurse Practitioner Acute Care; Visit Provider Nurse Practitioner Acute Care
DX: J45.50 Severe persistent asthma, uncomplicated (principal)
CPT/HCPCS: 96372; J0517

== ENCOUNTER 2023-08-28 12:20 | Outpatient (CLI) | payer MEDICARE, MEDICAID, SELFPAY ==
[2023-08-28 12:59] VITALS: BP 120/84; PULSE 80; RESP 16; TEMP 36.2; O2SAT 98; BMI 33.9
[2023-08-28] MEDS: Benralizumab 30 MG/ML Syringe SC (13:04)
== END 2023-08-28 12:21 | disposition home or self-care (01) ==
LOC: MEDOUTP 12:20
PROVIDERS: PCP Internal Medicine; Referring Provider Nurse Practitioner Acute Care; Visit Provider Nurse Practitioner Acute Care
DX: J45.50 Severe persistent asthma, uncomplicated (principal)
CPT/HCPCS: 96372; J0517

== ENCOUNTER → 2023-09-06 | Outpatient (CLI) | payer MEDICARE, MEDICAID, SELFPAY ==
[2023-09-06 15:30] LABS: Absolute Lymphocyte Count 2.21 X10^3/uL (0.83-4.51); Absolute Neutrophil Count 4.8 X10^3/uL (2.0-7.7); Basophil# 0.03 X10^3/uL; Basophil% 0.4 % (0-1); Hematocrit 49.2 % (40-54); Lymphocyte # 2.21 X10^3/ul (0.83-4.51); Lymphocyte % 27.9 % (19-41); Mean Corp Hgb Conc 32.5 g/dL (32-36); Mean Corpuscular Hgb 26.6 pg (27.0-32.0); Mean Corpuscular Volume 81.7 fL (80-94); Mean Platelet Vol. 10.4 fl (6.2-12.0); Monocyte# 0.91 X10^3/uL; Monocyte% 11.5 % (0-10); NRBC Flagged by Analyzer 0 % (0-5); Neutrophil # 4.76 X10^3/uL (2.7-7.7); Neutrophil % 59.9 % (47-70); Platelet Count 245 K/mm3 (150-450); RBC Distribution Width CV 13.1 % (11.6-14.6); Red Blood Count 6.02 M/mm3 (4.6-6.2); White Blood Count 7.9 K/mm3 (4.4-11.0)
[2023-09-06 16:23] LABS: AST(SGOT) 20 U/L (15-37); Alanine Aminotransfer ALT/SGPT 27 U/L (16-61); Albumin, Serum 3.4 g/dL (3.2-5.0); Alkaline Phosphatase 70 U/L (45-117); Anion Gap 5 (5-15); BUN 14 mg/dL (7-18); BUN/Creat Ratio 11.4 RATIO (10-20); Calcium,Total 9.3 mg/dL (8.5-10.1); Chloride 106 mmol/L (98-107); Creatinine, Serum 1.23 mg/dL (0.70-1.30); EST Glomerular Filtration Rate 71 mL/min (>60); Est Glom Filt Rate - Afr Amer 86 mL/min (>60); Globulin 3.3 g/dL (2.2-4.2); Glucose 130 mg/dL (74-106); Potassium 3.7 mmol/L (3.5-5.1); Protein, Total 6.7 g/dL (6.4-8.2); Sodium Level 139 mmol/L (136-145)
== END | disposition home or self-care (01) ==
LOC: BIMLAB 14:04
PROVIDERS: PCP Internal Medicine; Referring Provider Internal Medicine; Visit Provider Internal Medicine
DX: J45.909 Unspecified asthma, uncomplicated (principal); K21.9 Gastro-esophageal reflux disease without esophagitis; G43.909 Migraine, unspecified, not intractable, without status migrainosus
CPT/HCPCS: 36415; 80053; 85025

== ENCOUNTER 2023-10-23 12:24 | Outpatient (CLI) | payer MEDICARE, MEDICAID, SELFPAY ==
[2023-10-23] MEDS: Benralizumab 30 MG/ML Syringe SC (12:34)
[2023-10-23 12:37] VITALS: BP 126/79; PULSE 85; RESP 16; TEMP 36.6; O2SAT 97; BMI 34.0
--- OUTSIDE RECORDS SUMMARY | 2023-10-23 12:46 | XMS RPT_ITS | CCD ---
Author Name Unknown Address [address] [place] [address] Organization [facility] Care Team Providers Care Cmo & President Name Role Phone DOMINIK, APARNA E Unavailable Unavailable DOMINIK, APARNA E Unavailable Unavailable VELAZCO, ROXY J Unavailable Unavailable DOMINIK, APARNA E Unavailable Unavailable VELAZCO, ROXY J Unavailable Unavailable PROVIDER, UNKNOWN Unavailable Unavailable DOMINIK, APARNA E Unavailable Unavailable DOMINIK, APARNA E Unavailable Unavailable DOMINIK, APARNA E Unavailable Unavailable VELAZCO, ROXY J Unavailable Unavailable PROVIDER, UNKNOWN Unavailable Unavailable NEMUNAITIS, AYO Unavailable Unavailable NEMUNAITIS, AYO Unavailable Unavailable NEMUNAITIS, AYO Unavailable Unavailable VELAZCO, ROXY J Unavailable Unavailable VELAZCO, ROXY J Unavailable Unavailable PROVIDER, UNKNOWN Unavailable Unavailable George Mo Admitting Unavailable George Mo Attending Unavailable Velazco, Roxy J Primary Care Unavailable Singh Jeffries Primary Care Provider Allergies Allergy Classification Reported Allergen(s) Allergy Type Date of Onset Reaction(s) Facility (2 sources) PARoxetine; Translations: [Paxil] Drug Allergy [facility] Repository (2 sources) sertraline; Translations: [Zoloft] Drug Allergy [facility] Repository (1 source) bleach; Translations: [bleach] Propensity to adverse reactions (disorder) [facility] Repository (1 source) Hypochlorite Drug Allergy 0 Unknown [facility] (1 source) PARoxetine Drug Allergy 0 Unknown [facility] (1 source) Sertraline Drug Allergy 0 Unknown [facility] Results Test Name Value Interpretation Reference Range Facil ity Encounters Encounter Date Encounter Type Care Provider Facility Start: 04-21-2020 End: 04-21-2020 Patient encounter procedure Kait Myers (Pa) Work Phone: [facility] Start: 04-21-2020 Results Only Kait romano (Pa) Work Phone: [facility] Start: 11-20-2018 End: 11-20-2018 Emergency department patient visit George Mo Facility:[facility] Start: 11-19-2018 Patient encounter procedure Facility:[id number] Start: 12-10-2017 End: 12-10-2017 Emergency department patient visit AYO AVILA [facility] Start: 07-27-2017 End: 07-27-2017 Emergency department patient visit APARNA Treadwell DOMINIK [facility] Start: 07-17-2017 End: 07-17-2017 Emergency department patient visit [facility] Procedures Date Procedure Procedure Detail Performing Clinician Start: 04-21-2020 PT ED PATIENT INFORMATION Kait Myers (Pa) Work Phone: Plan of Treatment Date Care Activity Detail Author Start: 05-12-2020 Influenza vaccination INFLUENZA (#1) [facility] Start: 2006 Urine microalbumin profile DTAP,TDAP ,TD (1 - Tdap) [facility] Start: 2005 HEPATITIS C SCREENING HEPATITIS C SC [facility] Start: 2005 HIV SCREENING HIV SCREENING [facility] PT ED PATIENT INFORMATION PT ED PATIENT INFORMATION ALEJANDRA 04/21/2020 [facility] Payers Date Payer Category Payer Private Health Insurance 2017 Medicaid [facility] MEDICAID [facility] [employer] MEDICAID [id number] 2017-Present Medicaid [id number] 1987 Unknown [id number] 1987 Unknown [id number] Private Health Insurance [id number] Unknown [id number] Unknown Social History Date Type Detail Facility Start: 04-17-2020 Tobacco smoking stat us NHIS Never smoker [facility] Start: 04-17-2020 Tobacco use and exposure Current use r [facility] History of tobacco use Chews Tobacco [facility] Start: 04-17-2020 Alcohol intake Lifetime non-d clint (finding) [facility] Start: 04-17-2020 History SDOH Alcohol Frequency 1 [facility] Sex Assigned At Not on file [facility] Exposure to SARS-CoV -2 (event) Not sure [facility] Summary Purpose Family History No Family History Records FoundNo Family History Records FoundNo Family History Records FoundNo Family History Records FoundNo Family History Records Found Advance Directives No Advanced Directives Records FoundNo Advanced Directives Records FoundNo Advanced Directives Records FoundNo Advanced Directives Records FoundNo Advanced Directives Records Found Additional Source Comments (unrecognized sect ion and content) No Status Records FoundNo Status Records FoundNo Status Records FoundNo Status Records FoundNo Status Records Found INFORMATION SOURCE (unrecogn ized section and content) DATE CREATED AUTHOR AUTHOR'S ORGANIZ ATION 11/20/2018 [facility] DATE CREATED AUTHOR AUTHOR'S ORGANIZ ATION 11/20/2018 [facility] DATE CREATED AUTHOR AUTHOR'S ORGANIZ ATION 11/05/2021 [facility] DATE CREATED AUTHOR AUTHOR'S ORGANIZ ATION 01/17/2022 [facility] Source Comments (unrecognize d section and content) In the event this informatio n is protected by the Federal Confidentiality of Alcohol and Drug Abuse Patient Records regulations: The Federal rules restrict any use of the information to criminally investigate or prosecute any alcohol or drug abuse patient.[facility] FOR RECORDS PERTAINING TO PATIENTS WHO ARE OR HAVE BEEN ENROLLED IN A CHEMICAL DEPENDENCY/SUBSTANCEABUSE PROGRAM, SOME INFORMATION MAY BE OMITTED. This clinical summary was aggregated from multiple sources. Caution should be exercised in using it in the provision of clinical care. This summary normalizes information from multiple sources, and as a consequence, information in this document may materially change the coding, format and clinical context of patient data. In addition, data may be omitted in some cases. CLINICAL DECISIONS SHOULD BE BASED ON THE PRIMARY CLINICAL RECORDS. [facility] [facility]. provides no warranty or guarantee of the accuracy or completeness of information in this document.
== END 2023-10-23 12:25 | disposition home or self-care (01) ==
LOC: MEDOUTP 12:24
PROVIDERS: PCP Internal Medicine; Referring Provider Nurse Practitioner Acute Care; Visit Provider Nurse Practitioner Acute Care
DX: J45.50 Severe persistent asthma, uncomplicated (principal)
CPT/HCPCS: 96372; J0517

== ENCOUNTER 2023-12-18 12:27 | Outpatient (CLI) | payer MEDICARE, MEDICAID, SELFPAY ==
[2023-12-18 12:30] VITALS: BP 132/78; PULSE 68; RESP 16; TEMP 36.2; O2SAT 100
[2023-12-18] MEDS: Benralizumab 30 MG/ML Syringe SC (12:36)
== END 2023-12-18 12:28 | disposition home or self-care (01) ==
LOC: MEDOUTP 12:27
PROVIDERS: PCP Internal Medicine; Referring Provider Nurse Practitioner Acute Care; Visit Provider Nurse Practitioner Acute Care
DX: J45.50 Severe persistent asthma, uncomplicated (principal)
CPT/HCPCS: 96372; J0517

== ENCOUNTER 2024-02-12 11:11 | Outpatient (CLI) | payer MEDICARE, MEDICAID, SELFPAY ==
[2024-02-12 11:19] VITALS: BP 134/87; PULSE 79; RESP 16; TEMP 36.7; O2SAT 98; BMI 34.2
[2024-02-12] MEDS: Benralizumab 30 MG/ML Syringe SC (11:22)
== END 2024-02-12 23:59 | disposition home or self-care (01) ==
PROVIDERS: PCP Internal Medicine; Referring Provider Nurse Practitioner Acute Care; Visit Provider Nurse Practitioner Acute Care
DX: J45.50 Severe persistent asthma, uncomplicated (principal)
CPT/HCPCS: 96372; J0517

== ENCOUNTER 2024-04-08 12:16 | Outpatient (CLI) | payer MEDICARE, MEDICAID, SELFPAY ==
[2024-04-08 12:54] VITALS: BP 128/83; PULSE 87; RESP 14; TEMP 36.9; O2SAT 98; BMI 33.2
[2024-04-08] MEDS: Benralizumab 30 MG/ML Syringe SC (13:00)
== END 2024-04-08 23:59 | disposition home or self-care (01) ==
LOC: MEDOUTP 12:17
PROVIDERS: PCP Internal Medicine; Referring Provider Nurse Practitioner Acute Care; Visit Provider Nurse Practitioner Acute Care
DX: J45.50 Severe persistent asthma, uncomplicated (principal)
CPT/HCPCS: 96372; J0517

== ENCOUNTER 2024-06-04 10:33 | Outpatient (CLI) | payer MEDICARE, MEDICAID, SELFPAY ==
[2024-06-04 10:46] VITALS: BP 116/84; PULSE 80; RESP 16; TEMP 36.6; O2SAT 100; BMI 33.0
[2024-06-04] MEDS: Benralizumab 30 MG/ML Syringe SC (11:06)
== END 2024-06-04 23:59 | disposition home or self-care (01) ==
LOC: MEDOUTP 10:33
PROVIDERS: PCP Internal Medicine; Referring Provider Nurse Practitioner Acute Care; Visit Provider Nurse Practitioner Acute Care
DX: J45.50 Severe persistent asthma, uncomplicated (principal)
CPT/HCPCS: 96372; J0517

== ENCOUNTER 2024-07-31 11:32 | Outpatient (CLI) | payer MEDICARE, MEDICAID, SELFPAY ==
[2024-07-31 11:39] VITALS: BP 125/84; PULSE 85; RESP 16; TEMP 36.1; O2SAT 98; BMI 32.8
[2024-07-31] MEDS: Benralizumab 30 MG/ML Syringe SC (11:44)
== END 2024-07-31 23:59 | disposition home or self-care (01) ==
LOC: MEDOUTP 11:32
PROVIDERS: PCP Internal Medicine; Referring Provider Nurse Practitioner Acute Care; Visit Provider Nurse Practitioner Acute Care
DX: J45.50 Severe persistent asthma, uncomplicated (principal)
CPT/HCPCS: 96372; J0517

== ENCOUNTER 2024-09-25 14:00 | Outpatient (CLI) | payer MEDICARE, MEDICAID, SELFPAY ==
[2024-09-25 14:05] VITALS: BP 126/73; PULSE 105; RESP 18; TEMP 36.7; O2SAT 98; BMI 33.7
[2024-09-25] MEDS: Benralizumab 30 MG/ML Syringe SC (14:21)
== END 2024-09-25 23:59 | disposition home or self-care (01) ==
LOC: MEDOUTP 14:00
PROVIDERS: PCP Internal Medicine; Referring Provider Nurse Practitioner Acute Care; Visit Provider Nurse Practitioner Acute Care
DX: J45.50 Severe persistent asthma, uncomplicated (principal)
CPT/HCPCS: 96372; J0517

== ENCOUNTER 2024-10-23 13:19 | Outpatient (CLI) | payer MEDICARE, MEDICAID, SELFPAY ==
[2024-10-23] MEDS: Benralizumab 30 MG/ML Syringe SC (13:46)
[2024-10-23 13:50] VITALS: BP 127/92; PULSE 88; RESP 16; TEMP 36.9; O2SAT 95; BMI 34.2
[2024-10-23 15:27] LABS: Absolute Lymphocyte Count 2.17 X10^3/uL (0.83-4.51); Absolute Neutrophil Count 3.9 X10^3/uL (2.0-7.7); Basophil# 0.04 X10^3/uL; Basophil% 0.6 % (0-1); Hematocrit 44.9 % (40-54); Hemoglobin 14.7 g/dL (13.0-16.5); Lymphocyte # 2.17 X10^3/ul (0.83-4.51); Lymphocyte % 32.1 % (19-41); Mean Corp Hgb Conc 32.7 g/dL (32-36); Mean Corpuscular Hgb 26.6 pg (27.0-32.0); Mean Corpuscular Volume 81.3 fL (80-94); Mean Platelet Vol. 11.2 fl (6.2-12.0); Monocyte# 0.65 X10^3/uL; Monocyte% 9.6 % (0-10); NRBC Flagged by Analyzer 0 % (0-5); Neutrophil # 3.89 X10^3/uL (2.7-7.7); Neutrophil % 57.4 % (47-70); Platelet Count 217 K/mm3 (150-450); RBC Distribution Width CV 13.3 % (11.6-14.6); RBC Distribution Width SD 39.5 fl (35.1-43.9); Red Blood Count 5.52 M/mm3 (4.6-6.2); White Blood Count 6.8 K/mm3 (4.4-11.0)
[2024-10-23 15:57] LABS: ALB/GLOB Ratio 1.1 RATIO (0.9-2.4); AST(SGOT) 15 U/L (15-37); Alanine Aminotransfer ALT/SGPT 22 U/L (16-61); Albumin, Serum 3.6 g/dL (3.2-5.0); Alkaline Phosphatase 68 U/L (45-117); Anion Gap 6 (5-15); BUN 10 mg/dL (7-18); BUN/Creat Ratio 8.9 RATIO (10-20); Calcium,Total 9.2 mg/dL (8.5-10.1); Chloride 107 mmol/L (98-107); Cholesterol 206 mg/dL (200); Creatinine, Serum 1.12 mg/dL (0.70-1.30); EST Glomerular Filtration Rate 78 mL/min (>60); Est Glom Filt Rate - Afr Amer 95 mL/min (>60); Estimated Creatinine Clearance 121.49 ml/min; Globulin 3.3 g/dL (2.2-4.2); Glucose 101 mg/dL (74-106); High Density Lipoprotein 48 mg/dL; Protein, Total 6.9 g/dL (6.4-8.2); Sodium Level 140 mmol/L (136-145); Triglycerides 141 mg/dL; Very Low Density Lipoprotein 28 mg/dL (5-40)
[2024-10-24 10:28] LABS: Vitamin D,25 Hydroxy 6.9 ng/mL
== END 2024-10-23 23:59 | disposition home or self-care (01) ==
LOC: MEDOUTP 13:19
PROVIDERS: PCP Internal Medicine; Referring Provider Nurse Practitioner Acute Care; Visit Provider Nurse Practitioner Acute Care
DX: J45.50 Severe persistent asthma, uncomplicated (principal); K21.9 Gastro-esophageal reflux disease without esophagitis; E55.9 Vitamin D deficiency, unspecified; Z13.6 Encounter for screening for cardiovascular disorders
CPT/HCPCS: 36415; 80053; 80061; 82306; 85025; 96372; J0517

== ENCOUNTER 2024-12-17 11:50 | Outpatient (CLI) | payer MEDICARE, MEDICAID, SELFPAY ==
[2024-12-17 11:57] VITALS: BP 143/87; PULSE 80; RESP 16; TEMP 36.6; O2SAT 98; BMI 34.0
[2024-12-17] MEDS: Benralizumab 30 MG/ML Syringe SC (12:11)
== END 2024-12-17 23:59 | disposition home or self-care (01) ==
LOC: MEDOUTP 11:50
PROVIDERS: PCP Internal Medicine; Referring Provider Nurse Practitioner Acute Care; Visit Provider Nurse Practitioner Acute Care
DX: J45.50 Severe persistent asthma, uncomplicated (principal)
CPT/HCPCS: 96372; J0517

== ENCOUNTER 2025-02-12 11:55 | Outpatient (CLI) | payer MEDICARE, MEDICAID, SELFPAY ==
[2025-02-12 12:25] VITALS: BP 130/88; PULSE 80; RESP 16; TEMP 36.1; O2SAT 98
[2025-02-12] MEDS: Benralizumab 30 MG/ML Syringe SC (12:32)
== END 2025-02-12 23:59 | disposition home or self-care (01) ==
PROVIDERS: PCP Internal Medicine; Referring Provider Nurse Practitioner Acute Care; Visit Provider Nurse Practitioner Acute Care
DX: J45.50 Severe persistent asthma, uncomplicated (principal)
CPT/HCPCS: 96372; J0517

== ENCOUNTER 2025-04-07 10:32 | Outpatient (CLI) | payer MEDICARE, MEDICAID, SELFPAY ==
[2025-04-07 10:45] VITALS: BP 122/78; PULSE 83; RESP 16; TEMP 36.1; O2SAT 97
== END 2025-04-07 23:59 | disposition home or self-care (01) ==
LOC: MEDOUTP 10:32
PROVIDERS: PCP Internal Medicine; Referring Provider Nurse Practitioner Acute Care; Visit Provider Nurse Practitioner Acute Care
DX: J45.50 Severe persistent asthma, uncomplicated (principal)
CPT/HCPCS: 96372; J0517

== ENCOUNTER 2025-06-04 12:44 | Outpatient (CLI) | payer MEDICARE, MEDICAID, SELFPAY ==
[2025-06-04 13:00] VITALS: BP 139/93; PULSE 68; RESP 16; TEMP 36.6; O2SAT 98
== END 2025-06-04 23:59 | disposition home or self-care (01) ==
LOC: MEDOUTP 12:44
PROVIDERS: PCP Internal Medicine; Referring Provider Nurse Practitioner Acute Care; Visit Provider Nurse Practitioner Acute Care
DX: J45.50 Severe persistent asthma, uncomplicated (principal)
CPT/HCPCS: 96372; J0517

== ENCOUNTER 2025-07-30 12:20 | Outpatient (CLI) | payer MEDICARE, MEDICAID, SELFPAY ==
[2025-07-30 12:30] VITALS: BP 119/86; PULSE 79; RESP 18; TEMP 36.6; O2SAT 96; BMI 34.2
== END 2025-07-30 23:59 | disposition home or self-care (01) ==
LOC: MEDOUTP 12:21
PROVIDERS: PCP Internal Medicine; Referring Provider Nurse Practitioner Acute Care; Visit Provider Nurse Practitioner Acute Care
DX: J45.50 Severe persistent asthma, uncomplicated (principal)
CPT/HCPCS: 96372; J0517